=== PATIENT | male | born 1955 | race Caucasian/White ===

== ENCOUNTER 2020-05-02 14:14 | Emergency (ER) | payer BC ==
[~2020-05-02] VITALS: Ht 188 cm; Wt 124.0 kg
[2020-05-02] MEDS ORDERED: SYNTHROID150 MCG PO (15:26)
[2020-05-02] MEDS ORDERED: AMOXICILLIN500 MG PO (15:27)
[2020-05-02 18:56] LABS: HEMATOCRIT 44.2 % (39.0-50.0); HEMOGLOBIN 14.7 g/dl (14.0-18.0); IMMATURE GRANULOCYTES 0.2 % (0.0-5.0); MEAN CELL VOLUME 94.8 fL CALC (80.0-100.0); MEAN CORPUSCULAR HGB 31.5 pG CALC (26.0-32.0); MEAN CORPUSCULAR HGB CONC 33.3 g/dL CAL (32.0-36.0); NEUT# 2.83 thou/uL (1.82-7.42); RED BLOOD COUNT 4.66 mill/uL (4.70-6.10); RED CELL DISTRI WIDTH 12.1 % (11.5-15.5)
[2020-05-02 19:07] LABS: ALBUMIN 3.9 g/dL (3.2-5.0); ALKALINE PHOSPHATASE 57 u/l (38-126); ANION GAP 13 (6-22 (CALC)); BILIRUBIN, TOTAL 0.4 mg/dL (0.0-1.4); BUN 17 mg/dL (8-23); BUN/CREATININE RATIO 10 (12-20 (CALC)); CARBON DIOXIDE 20 mmol/l (22-30); CHLORIDE 104 mmol/l (95-108); CREATININE 1.7 mg/dL (0.7-1.3); GFR 41 ML/MIN (>=60 (CALC)); GFR FOR AFR.AMER. 50 ML/MIN (>=60 (CALC)); POTASSIUM 4.2 mmol/l (3.5-5.1); SGOT/AST 49 u/l (19-48); SODIUM 133 mmol/l (137-146); TOTAL PROTEIN 7.4 g/dL (6.3-8.2)
[2020-05-02 19:19] LABS: MYOGLOBIN 104 ng/mL (0 - 121)
[2020-05-02 21:57] VITALS: BP 104/67
== END 2020-05-02 22:05 | disposition home or self-care (01) | DRG 179 ==
LOC: ED 14:14
PROVIDERS: Emergency Medicine
DX: U07.1 COVID-19 (principal)
CPT/HCPCS: Q9967

== ENCOUNTER 2020-05-05 10:10 | Observation (INO) | payer BC ==
[~2020-05-05] VITALS: Ht 188 cm; Wt 124.0 kg
[~2020-05-05 10:10] MED LIST: AMOXICILLIN500 MG PO; SYNTHROID150 MCG PO
[2020-05-05 10:46] LABS: HEMOGLOBIN 15.1 g/dl (14.0-18.0); IMMATURE GRANULOCYTES 0.2 % (0.0-5.0); MEAN CELL VOLUME 92.1 fL CALC (80.0-100.0); MEAN CORPUSCULAR HGB 31.6 pG CALC (26.0-32.0); MEAN CORPUSCULAR HGB CONC 34.3 g/dL CAL (32.0-36.0); NEUT# 3.23 thou/uL (1.82-7.42); RED BLOOD COUNT 4.78 mill/uL (4.70-6.10)
--- NOTE | 2020-05-05 11:00 | NUR ---
PT HAS FLUIDS RUNNING THE PATIENT WAS HYPOTENSIVE ON ARRIVAL PT TOLERATING WELL WITHOUT DISTRESS. OXYGEN SATURATION ABOVE 95 ON ROOM AIR
[2020-05-05 11:03] LABS: ALBUMIN 3.8 g/dL (3.2-5.0); ALKALINE PHOSPHATASE 49 u/l (38-126); ANION GAP 13 (6-22 (CALC)); BILIRUBIN, TOTAL 0.4 mg/dL (0.0-1.4); BUN 17 mg/dL (8-23); BUN/CREATININE RATIO 9 (12-20 (CALC)); C-REACTIVE PROTEIN 2.2 mg/dL (0-0.9); CARBON DIOXIDE 20 mmol/l (22-30); CHLORIDE 104 mmol/l (95-108); CREATININE 1.8 mg/dL (0.7-1.3); GFR 38 ML/MIN (>=60 (CALC)); GFR FOR AFR.AMER. 46 ML/MIN (>=60 (CALC)); LIPASE 241 u/l (23-300); POTASSIUM 3.6 mmol/l (3.5-5.1); SGOT/AST 47 u/l (19-48); SODIUM 133 mmol/l (137-146); TOTAL PROTEIN 7.7 g/dL (6.3-8.2)
--- NOTE | 2020-05-05 11:40 | NUR ---
ANTIBIOTICS RUNNING PT WITHOUT DISTRESS
--- NOTE | 2020-05-05 15:42 | NUR ---
PT CURRENTLY RESTING WITHOUT DISTRESS, OXYGENATION ON ROOM AIR IS 96
[2020-05-05 17:25] VITALS: BP 98/61
--- NOTE | 2020-05-05 17:30 | NUR ---
Transfer Information Transferred To: [facility] Report Given to: CHIKIS MONTANA Transported by: [facility] Air Other Transported with: X Nurse X Transporter X Patent IV O2 X Food Service Substitute PT STABLE WITHOUT ACUTE DISTRESS PRIOR TO TRANSFER
--- NOTE | 2020-05-05 17:31 | NUR ---
PT ARRIVED TO [facility] ROOM 287 VIA PORTABLE ACCOMPAINED BY ER STAFF IN STABLE CONDITION. INTRODUCED SELF TO PT AND DISCUSSED POC. PT IS A/O X3. ASSESSMENT AND VITALS COMPLETED. RESPIRATIONS ARE EVEN AND UNLABORED ON ROOM AIR. NONPRODUCTIVE COUGH NOTED. HEART RHYTHM IS NORMAL WITH TELE IN PLACE. BOWEL SOUNDS ACTIVE IN ALL QUADRANTS, LAST RPORTED BM 05/05/2020. PT REPORTS DIARRHEA. #20G IN RAC RUNNING WITH IVF PER ODER, SITE APPEARS HEALTHY AND PATENT.SKIN IS WARM AND DRY WITH NO BREAK DOWN NOTED. TRACE EDEMA NOTED TO BILATERAL ANKLES. PT DENIES OF ANY PAIN. TRANSIT MIX OPERATOR INFORMED THAT PT PRESENTED TO ED DUE TO SOB FOR PAST COUPLE DAYS. PT ORIENTED TO ROOM AND CALL LIGHT SYSTEM. PT DENIES OF ANY NEEDS AT THIS TIME. ALL SAFTEY PRECAUTIONS ARE IN PLACE WIHT AIR/CONTACT PRECAUTIONS IN PLACE. WILL CONTINUE TO MONITOR
[2020-05-05 17:41] LABS: URINE BILIRUBIN - DIPSTICK NEGATIVE (NEGATIVE); URINE BLOOD DIPSTICK NEGATIVE (NEGATIVE); URINE COLOR YELLOW; URINE GLUCOSE - DIPSTICK NEGATIVE (NEGATIVE); URINE KETONE NEGATIVE (NEGATIVE); URINE LEUK ESTERASE NEGATIVE (NEGATIVE); URINE NITRITE - DIPSTICK NEGATIVE (Negative); URINE PROTEIN - DIPSTICK NEGATIVE (NEG-TRACE); URINE UROBILINOGEN - DIPSTICK 0.2 E.U./dL (0.2)
--- NOTE | 2020-05-05 19:00 | NUR ---
REPORT RECEIVED FROM NAKIA DIOP. PT RESTING IN BED, NO S/S OF DISTRESS AT THIS TIME. SAFETY PRECAUTIONS IN PLACE. WILL CONTINUE TO MONITOR.
[2020-05-05 20:00] VITALS: BP 98/65
--- NOTE | 2020-05-05 20:50 | NUR ---
PT RESTING IN BED WITH EYES CLOSED, PT EASILY AROUSED. RESPIRATIONS ARE EVEN AND UNLABORED. LUNGS SOUND CLEAR/DIMINISHED. PEDAL PULSES ARE STRONG. PT DENIES ANY PAIN OR DISCOMFORT AT THIS TIME. SAFETY PRECAUTIONS IN PLACE. WILL CONTINUE TO MONITOR.
[2020-05-06] VITALS (7 sets, daily range): BP systolic 93–115; BP diastolic 60–82
--- NOTE | 2020-05-06 00:12 | NUR ---
PT RESTING IN BED NO S/S OF DISTRESS AT THIS TIME.
--- NOTE | 2020-05-06 04:36 | NUR ---
PT RESTING IN BED, NO S/S OF DISTRESS AT THIS TIME. SAFETY PRECAUTIONS IN PLACE.
[2020-05-06 05:20] LABS: HEMATOCRIT 39.4 % (39.0-50.0); HEMOGLOBIN 13.5 g/dl (14.0-18.0); IMMATURE GRANULOCYTES 0.3 % (0.0-5.0); MEAN CELL VOLUME 92.3 fL CALC (80.0-100.0); MEAN CORPUSCULAR HGB 31.6 pG CALC (26.0-32.0); MEAN CORPUSCULAR HGB CONC 34.3 g/dL CAL (32.0-36.0); NEUT# 1.95 thou/uL (1.82-7.42); RED BLOOD COUNT 4.27 mill/uL (4.70-6.10)
[2020-05-06 05:42] LABS: ALKALINE PHOSPHATASE 37 u/l (38-126); ANION GAP 10 (6-22 (CALC)); BILIRUBIN, TOTAL 0.3 mg/dL (0.0-1.4); BUN 13 mg/dL (8-23); BUN/CREATININE RATIO 11 (12-20 (CALC)); CARBON DIOXIDE 20 mmol/l (22-30); CHLORIDE 108 mmol/l (95-108); CREATININE 1.2 mg/dL (0.7-1.3); GFR > 60 ML/MIN (>=60 (CALC)); GFR FOR AFR.AMER. > 60 ML/MIN (>=60 (CALC)); POTASSIUM 4.2 mmol/l (3.5-5.1); SGOT/AST 44 u/l (19-48); SODIUM 134 mmol/l (137-146)
[2020-05-06 05:50] LABS: ALBUMIN 2.9 g/dL (3.2-5.0); TOTAL PROTEIN 5.7 g/dL (6.3-8.2)
--- NOTE | 2020-05-06 07:01 | NUR ---
Patient is screened for PT intervention and no needs are identified at this time
--- NOTE | 2020-05-06 07:20 | NUR ---
COMPONENT TECHNICIAN NOTFIED BY CLAUDIO IN LAB THAT COVID SWAB WAS POSITIVE. NOTIFIED
--- NOTE | 2020-05-06 07:30 | NUR ---
RECIEVED REPORT FROM RUBÉN NANCE. PT RESTING IN LOW FOWLERS POSITION. INTRODUCED SELF TO PT AND DISCUSSED POC. PT IS A/OX3. PT DENIES ANY NEEDS OR DISCOMFORTS AT THIS TIME. ALL SAFETY PRECAUTIONS ARE IN PLACE WITH CALL LIGHT IN REACH.WILL CONTINUE TO MONITOR
--- NOTE | 2020-05-06 08:25 | NUR ---
ASSESSMENT AND VITALS COMPLETED AT THIS TIME. BP 93/60, HR 84, O2 94% ON ROOM AIR. RESPIRATIONS ARE EVEN AND UNLABORED ON ROOM AIR. NONRODUCTIVE COUGH NOTED. HEART RHYTHM NORMAL WITH TELE IN PLACE, SR 80 PER ER MONITORING. RADIAL AND PEDAL PULSES ARE STRONG. #20G INFUSING WITH IVF PER ORDER SITE APPEARS HEALTHY AND PATENT. PT DENIES OF ANY PAIN. PT APPEARS TO BE DIAPHORETIC, PT REPORTS ROOM IS WARM. TEMP RESULTING IN 98.5. ROOM TEMP DECREASED. PT DENIES ANY NEEDS AT THIS TIME. ALL SAFTEY AND ISOLATION PRECAUTIONS ARE IN PLACE WITH CALL LIGHT IN REACH. WILL CONTINUE TO MONITOR
--- NOTE | 2020-05-06 11:29 | NUR ---
REPOETED TEMP OF 99.3. TYLENOL TO BE ADMINISTERED
--- NOTE | 2020-05-06 12:22 | NUR ---
PT RESING IN SEMI FOWLERS POSITION WITH EYES CLOSED. REPSIRATIONS ARE EVEN AND UNLABORED ON ROOM AIR. NO SIGNS OF ANY PAIN OR DISCOMFORTS AT THIS TIME. COVERS REMOVED AND TYLENOL ADMINISTERED FOR TEMP. WILL FOLLOW UP. PT DENEIS ANY NEEDS AT THIS TIME. ALL SAFETY AND ISOALTION PRECAUTIONS ARE IN PLACE WITH CALL LIGHT IN REACH. WILL CONTINUE TO MONITOR
--- NOTE | 2020-05-06 13:03 | NUR ---
REASSESSSMENT OF TEMP 98.3. WILL CONTINUE TO MONITOR
--- NOTE | 2020-05-06 13:20 | NUR ---
REASSESSMENT OF TEMP REUSLTING IN 97.7. RESPIRATIONS ARE EVEN AND UNLABORED WITH NO SIGNS OF DISTRESS ON ROOM AIR. PT DENIES ANY PAIN. ALL SAFETY PRECAUTIONSA RE IN PLACE WITH CALL LIGHT IN REACH.WILL CONTINUE TO MONITOR.
--- NOTE | 2020-05-06 16:22 | NUR ---
PT RESITNG IN SEMI FOWLERS POSITION UPON ENTERING ROOM. RESPIRATIONS ARE EVEN AND UNLABORED ON ROOM AIR. TELE MONITORING IN PLACE. IVF INFUSING PER ORDER, SITE REMAINS HEALTHY AND PATENT. PT DENIES ANY PAIN OR NEEDS AT THIS TIME. ALL SAFETY PRECAUTIONS ARE IN PLACE WIHT CALL LIGHT IN REACH. WILL CONTINUE TO MONITOR
--- NOTE | 2020-05-06 20:22 | NUR ---
RECEIVED REPORT FROM SANTOS DIOP RESTING IN BED IN SEMI-KO, NO S/SX OF DISTRESS OBSERVED AT THIS TIME, PT DENIES ANY PAIN AT THIS TIME. NO NEEDS OR CONCERN EXPRESSED AT THIS TIME. WILL CONTINUE TO MONITOR.
--- NOTE | 2020-05-07 00:35 | NUR ---
PT RESTING IN BED, NO S/S OF DISTRESS AT THIS TIME. SAFETY PRECAUTIONS IN PLACE.
[2020-05-07 04:00] VITALS: BP 110/67
--- NOTE | 2020-05-07 04:18 | NUR ---
PT RESTING IN BED, NO S/S OF DISTRESS AT THIS TIME. SAFETY PRECAUTIONS IN PLACE.
[2020-05-07 07:10] VITALS: BP 109/69
--- NOTE | 2020-05-07 08:08 | NUR ---
PATIENT IN BED AT THIS TIME, DENIES ANY PAIN AND STATES HE DOES NOT FEEL SHORTNESS OF BREATH AT THIS TIME. CALL LIGHT IS WITHIN REACH. SIDERAILS UP X 2
[2020-05-07 10:50] VITALS: BP 97/63
--- NOTE | 2020-05-07 11:28 | NUR ---
PATIENT IN BED RESTING WITH EYES CLOSED, RESPIRATIONS EASY AND UNLABORED AT THIS TIME ALL SAFETY MEASURES IN PLACE CALL LIGHT WITHIN REACH. WILL CONTINUE TO MONITOR.
[2020-05-07] MEDS ORDERED: ZITHROMAX250 MG PO (11:35)
[2020-05-07] MEDS ORDERED: MEDDOSEPAK PO (11:35)
--- NOTE | 2020-05-07 15:53 | NUR ---
PATIENT D/C AT THIS TIME. PATIENT VERBALIZES UNDERSTANDING OF ALL D/C INSTRUCTIONS. PATIENT ADVISED IF CONDITION WORSENS TO SEEK MEDICAL ATTENTION TO [facility] .
--- NOTE | 2020-05-07 16:03 | NUR ---
Discharge instructions given. Patient verbalizes understanding of same. Discharged in stable condition via Wheelchair to Home with family. All belongings sent with pt.
== END 2020-05-07 16:04 | disposition home or self-care (01) | DRG 177 ==
LOC: ED 10:10 → ED-I 13:15 → ED 14:06 → MS2 14:07 → ED-I 14:07 → MS2 17:10
PROVIDERS: Family Medicine; Nurse Practitioner Family; ADMIT Internal Medicine; ATTEND Internal Medicine
DX: U07.1 COVID-19 (principal); J12.89 Other viral pneumonia; N17.9 Acute kidney failure, unspecified; I95.9 Hypotension, unspecified; I12.9 Hypertensive chronic kidney disease with stage 1 through stage 4 chronic kidney disease, or unspecified chronic kidney disease; N18.9 Chronic kidney disease, unspecified; E03.9 Hypothyroidism, unspecified; J45.909 Unspecified asthma, uncomplicated; E66.9 Obesity, unspecified; Z68.35 Body mass index [BMI] 35.0-35.9, adult
CPT/HCPCS: G0378; J1650; Q9967

== ENCOUNTER 2021-05-27 18:27 | Emergency (ER) | payer BC ==
[~2021-05-27] VITALS: Ht 188 cm; Wt 109.1 kg
[~2021-05-27 18:27] MED LIST changes: +MEDDOSEPAK PO; +ZITHROMAX250 MG PO
[2021-05-27] MEDS ORDERED: PROCTO-MED HC2.5 % (18:50)
[2021-05-27] MEDS ORDERED: MESALAMINE DR400 MG PO (18:51)
[2021-05-27 19:34] LABS: HEMATOCRIT 40.1 % (39.0-50.0); HEMOGLOBIN 13.7 g/dl (14.0-18.0); IMMATURE GRANULOCYTES 0.3 % (0.0-5.0); MEAN CELL VOLUME 94.8 fL CALC (80.0-100.0); MEAN CORPUSCULAR HGB 32.4 pG CALC (26.0-32.0); MEAN CORPUSCULAR HGB CONC 34.2 g/dL CAL (32.0-36.0); NEUT# 7.28 thou/uL (1.82-7.42); RED BLOOD COUNT 4.23 mill/uL (4.70-6.10); RED CELL DISTRI WIDTH 12.1 % (11.5-15.5)
[2021-05-27 19:45] LABS: ALBUMIN 3.4 g/dL (3.2-5.0); BUN 12 mg/dL (8-23); BUN/CREATININE RATIO 9 (12-20 (CALC)); CARBON DIOXIDE 25 mmol/l (22-30); CHLORIDE 95 mmol/l (95-108); CREATININE 1.3 mg/dL (0.7-1.3); GFR 56 ML/MIN (>=60 (CALC)); GFR FOR AFR.AMER. > 60 ML/MIN (>=60 (CALC)); LIPASE 52 u/l (23-300); POTASSIUM 4.1 mmol/l (3.5-5.1); SGOT/AST 21 u/l (19-48)
[2021-05-27 19:51] LABS: ALKALINE PHOSPHATASE 64 u/l (38-126); ANION GAP 14 (6-22 (CALC)); BILIRUBIN, TOTAL 0.7 mg/dL (0.0-1.4); SODIUM 130 mmol/l (137-146); TOTAL PROTEIN 7.3 g/dL (6.3-8.2)
[2021-05-27 22:05] LABS: URINE BILIRUBIN - DIPSTICK NEGATIVE (NEGATIVE); URINE BLOOD DIPSTICK NEGATIVE (NEGATIVE); URINE COLOR YELLOW; URINE GLUCOSE - DIPSTICK NEGATIVE (NEGATIVE); URINE KETONE NEGATIVE (NEGATIVE); URINE LEUK ESTERASE NEGATIVE (NEGATIVE); URINE PH 6.5 (4.5-8.0); URINE PROTEIN - DIPSTICK NEGATIVE (NEG-TRACE); URINE UROBILINOGEN - DIPSTICK 0.2 E.U./dL (0.2)
[2021-05-27 22:06] LABS: URINE NITRITE - DIPSTICK NEGATIVE (Negative)
[2021-05-27] MEDS ORDERED: PREDNISONE50 MG PO (22:23)
[2021-05-27] MEDS ORDERED: PROMETHAZINE HY25 M1 PO (22:23)
[2021-05-27 22:35] VITALS: BP 101/77
== END 2021-05-27 23:00 | disposition home or self-care (01) | DRG 387 ==
LOC: ED 18:27
PROVIDERS: Family Medicine
DX: K51.90 Ulcerative colitis, unspecified, without complications (principal)
CPT/HCPCS: Q9967

== ENCOUNTER 2021-06-01 18:07 | Inpatient (IN) | payer BC ==
[~2021-06-01] VITALS: Ht 188 cm; Wt 104.0 kg
[~2021-06-01 18:07] MED LIST changes: +MESALAMINE DR400 MG PO; +PREDNISONE50 MG PO; +PROCTO-MED HC2.5 %; +PROMETHAZINE HY25 M1 PO
[2021-06-01 19:00] VITALS: BP 117/79
--- NOTE | 2021-06-01 21:00 | NUR ---
PATIENT RESTING IN BED AT THIS TIME-AWAKE ALERT AND ORIENTEDX3. PATIENT STATES THAT HE IS FEELING VERY WEAK. STATES THAT HE HAD A COLONOSCOPY DONE A COUPLE OF WEEKS AGO IN [facility] AFTER HAVING CHRONIC DIARRHEA AND THEN BLOODY DIARRHEA. STATES THAT HE WAS TOLD FOLLOWING THE PROCEDURE THAT HE HAD ULCERATIVE COLITIS AND ABCESS. HAD TELE VISIT WITH DR. WORTHY TODAY AND WAS REFERRED TO THE HOSPITAL. LABS WERE DRAWN AND EKG WAS DONE AT BEDSIDE. PATIENT UP TO THE BSC FOR SMALL AMT OF LIQUID BROWN STOOL MIXED WITH URINE. UNABLE TO COLLECT SPEC AT THIS TIME. INSTRUCTED PATIENT THAT WE DO NEED STOOL AND URINE SPEC WHEN HE IS ABLE TO PROVIDE. SALINE LOCK TO LEFT ARM INTACT AND HEALTHY WITH GOOD BLOOD RETURN. IVF NS HUNG AND INFUSING AT 100CC/HR. PATIENT STATES THAT HE HASN'T BEEN ABLE TO EAT SOLID FOOD FOR A WHILE. TAKING ONLY PO FLUIDS AND THAT THEY ARE GOING RIGHT THOUGH HIM. PROVIDED WITH GATORADE AND PO FLUIDS. LUNGS ARE CLEAR. ABD IS SOFT WITH BS+. NO PERIPHERAL EDEMA NOTED. PULSES ARE PALPABLE. PATIENT ORIENTED TO ROOM AND SURROUNDINGS. INSTRUCTED ON USE OF NURSE CALL LIGHT SYSTEM AND TV REMOTE. SAFETY PRECAUTIONS REINFORCED. CALL LIGHT IN REACH. WILL CONT TO MONITOR.
[2021-06-01 21:13] LABS: HEMATOCRIT 43.1 % (39.0-50.0); HEMOGLOBIN 14.2 g/dl (14.0-18.0); IMMATURE GRANULOCYTES 0.3 % (0.0-5.0); MEAN CELL VOLUME 97.5 fL CALC (80.0-100.0); MEAN CORPUSCULAR HGB 32.1 pG CALC (26.0-32.0); MEAN CORPUSCULAR HGB CONC 32.9 g/dL CAL (32.0-36.0); NEUT# 5.5 thou/uL (1.82-7.42); RED BLOOD COUNT 4.42 mill/uL (4.70-6.10)
[2021-06-01 21:24] LABS: ALBUMIN 2.9 g/dL (3.2-5.0); ALKALINE PHOSPHATASE 65 u/l (38-126); ANION GAP 14 (6-22 (CALC)); BILIRUBIN, TOTAL 0.7 mg/dL (0.0-1.4); BUN 18 mg/dL (8-23); BUN/CREATININE RATIO 17 (12-20 (CALC)); CARBON DIOXIDE 25 mmol/l (22-30); CHLORIDE 96 mmol/l (95-108); CREATININE 1.1 mg/dL (0.7-1.3); GFR > 60 ML/MIN (>=60 (CALC)); GFR FOR AFR.AMER. > 60 ML/MIN (>=60 (CALC)); POTASSIUM 4.7 mmol/l (3.5-5.1); SGOT/AST 30 u/l (19-48); SODIUM 131 mmol/l (137-146); TOTAL PROTEIN 6.5 g/dL (6.3-8.2)
--- NOTE | 2021-06-01 23:00 | NUR ---
PATIENT RESTING IN BED-URINE SPEC COLLECTED AND SENT TO LAB. NO COMPLAINTS AT THIS TIME. IVF PATENT AND INFUSING VIA LEFT ARM. CALL LIGHT IN REACH. WILL CONT TO MONITOR.
[2021-06-01 23:43] LABS: URINE BILIRUBIN - DIPSTICK NEGATIVE (NEGATIVE); URINE BLOOD DIPSTICK NEGATIVE (NEGATIVE); URINE COLOR YELLOW; URINE GLUCOSE - DIPSTICK NEGATIVE (NEGATIVE); URINE KETONE NEGATIVE (NEGATIVE); URINE LEUK ESTERASE NEGATIVE (NEGATIVE); URINE PROTEIN - DIPSTICK NEGATIVE (NEG-TRACE); URINE SPECIFIC GRAVITY 1.015; URINE UROBILINOGEN - DIPSTICK 0.2 E.U./dL (0.2)
[2021-06-01 23:48] LABS: URINE NITRITE - DIPSTICK NEGATIVE (Negative)
[2021-06-02 00:41] VITALS: BP 108/71
--- NOTE | 2021-06-02 01:12 | NUR ---
PATIENT UP TO BSC-SMALL AMT OF LIQUID GREENISH BROWN STOOL-SPEC OBTAINED AND SENT TO THE LAB. BACK IN BED. MEDICATED WITH ATIVAN 0.5MG PF FOR SLEEP. IVF PATENT AND INFUSING VIA LEFT FOREARM SITE ORDERED. CALL LIGHT IN REACH. WILL CONT TO MONITOR.
[2021-06-02 04:00] VITALS: BP 105/66
--- NOTE | 2021-06-02 04:34 | NUR ---
PATIENT IP TO THE BSC AGAIN-SMALL AMT OF LOOSE BROWN STOOL. ASSISTED BACK TO THE BED, NASAL SWAB OBTAINED AND SENT TO LAB FOR MRSA HX. PATIENT PLACED ON CONTACT PER PROTOCOL. IVF NS PATENT AND INFUSING VIA LEFT FOREARM SITE AT 100CC/HR. PATIENT TAKING PO FLUIDS AND TOLERATING OK AT THIS TIME. SAFETY PRECAUTIONS REINFORCED. CALL LIGHT IN REACH. WILL CONT TO MONITOR.
[2021-06-02 05:13] LABS: HEMOGLOBIN 12.4 g/dl (14.0-18.0); MEAN CORPUSCULAR HGB 32.8 pG CALC (26.0-32.0); MEAN CORPUSCULAR HGB CONC 34.2 g/dL CAL (32.0-36.0); RED BLOOD COUNT 3.78 mill/uL (4.70-6.10)
[2021-06-02 05:24] LABS: HEMATOCRIT 36.3 % (39.0-50.0)
[2021-06-02 05:33] LABS: ANION GAP 14 (6-22 (CALC)); BUN 17 mg/dL (8-23); BUN/CREATININE RATIO 17 (12-20 (CALC)); CARBON DIOXIDE 22 mmol/l (22-30); CHLORIDE 98 mmol/l (95-108); GFR > 60 ML/MIN (>=60 (CALC)); GFR FOR AFR.AMER. > 60 ML/MIN (>=60 (CALC)); MAGNESIUM 2.2 mg/dL (1.6-2.3); POTASSIUM 3.5 mmol/l (3.5-5.1); SODIUM 130 mmol/l (137-146)
--- NOTE | 2021-06-02 05:43 | NUR ---
PATIENT UP TO THE BSC AGAIN FOR SMALL AMT OF LOOSE BROWN STOOL. BACK TO THE BED. IVF PATENT AND INFUSING VIA LEFT FOREARM SITE. MEDICATED WITH SYNTHROID ORDERED. CALL LIGHT IN REACH. WILL CONT TO MONITOR.
[2021-06-02 08:00] VITALS: BP 121/75
--- NOTE | 2021-06-02 09:17 | NUR ---
PT SEEN AWAKE, ALERT, ORIENTED X 3, APPEARS WEAK. PT USING BSC, NOTED TO HAVE FOUL SMELLING BMs WHEN HE USES COMMODE. PT ABLE TO SWALLOW HIS PILLS WITHOUT DIFFICULTY EVEN THOUGH HIS INTAKE HAS BEEN VERY LIMITED RECENTLY.
[2021-06-02] MEDS ORDERED: PREDNISONE20 MG PO (12:58)
--- NOTE | 2021-06-02 14:01 | NUR ---
PT SEEN BY DR ARCOS AND JUSTIN THIS MORNING, MEDS ADJUSTED DEEMED BENEFICIAL FOR PT. PT TO CT AND BACK, RESULTS SHARED WITH PT. PT CONTINUES WITH FREQUENT EPISODES OF DIARRHEA.
[2021-06-02 14:44] VITALS: BP 130/72
--- NOTE | 2021-06-02 18:05 | NUR ---
PT STATES NO NAUSEA AT THIS TIME, DECLINES ZOFRAN. AT BEDSIDE PROVIDES SUPPORT.
[2021-06-02 19:00] VITALS: BP 112/76
--- NOTE | 2021-06-02 20:00 | NUR ---
PATIENT RESTING IN BED AT THIS TIME-AWAKE ALERT AND ORIENTEDX3. PATIENT STATES THAT HE CONT TO HAVE FREUENT LOOSE BROWN STOOLS BUT MAY HAVE SLOWED DOWN SLIGHTLY. IVF NS PATENT AND INFUSING VIA LEFT FOREARM SITE. SITE REMAINS HEALTHY AT THIS TIME. APPETITE REMAINS POOR-TAKING ONLY SMALL AMT OF PO FLUIDS. SAFETY PRECAUTIONS REINFORCED. CALL LIGHT IN REACH. WILL CONT TO MONITOR.
--- NOTE | 2021-06-02 23:48 | NUR ---
PATIENT MIN ASSIST OOB TO THE BSC FOR BM. ZOSYN HUNG ORDERED. IVF NS PATENT AND INFUSING VIA LEFT FOREARM SITE. CALL LIGHT IN REACH. WILL CONT TO MONITOR,
[2021-06-03 04:00] VITALS: BP 125/71
--- NOTE | 2021-06-03 04:29 | NUR ---
PATIENT UP TO THE BSC AGAIN AND PASSING LOOSE BROWNISH RED STOOL. PATIENT NOW RESTING IN BED. IVF PATENT AND INFUSING VIA LEFT FOREARM SITE AT 100CC/HR. PATIENT DENIES ANY DIFFICULTY WITH URINATION. ACTUALLY STATES THAT HIS URINE OUTPUT IS INCREASED SINCE STARTED ON IVF. LOOSE BM'S ARE LESS THAN LAST NIGHT-ONLY 2-3 TIMES TONIGHT. SAFETY PRECAUTIONS REINFORCED. CALL LIGHT IN REACH. WILL CONT TO MONITOR.
[2021-06-03 05:27] LABS: HEMATOCRIT 34.4 % (39.0-50.0); HEMOGLOBIN 11.8 g/dl (14.0-18.0); MEAN CELL VOLUME 93.7 fL CALC (80.0-100.0); MEAN CORPUSCULAR HGB 32.2 pG CALC (26.0-32.0); MEAN CORPUSCULAR HGB CONC 34.3 g/dL CAL (32.0-36.0); RED BLOOD COUNT 3.67 mill/uL (4.70-6.10); RED CELL DISTRI WIDTH 11.9 % (11.5-15.5)
[2021-06-03 05:43] LABS: ANION GAP 10 (6-22 (CALC)); BUN 15 mg/dL (8-23); BUN/CREATININE RATIO 17 (12-20 (CALC)); CARBON DIOXIDE 22 mmol/l (22-30); CHLORIDE 102 mmol/l (95-108); CREATININE 0.9 mg/dL (0.7-1.3); GFR > 60 ML/MIN (>=60 (CALC)); GFR FOR AFR.AMER. > 60 ML/MIN (>=60 (CALC)); MAGNESIUM 2.6 mg/dL (1.6-2.3); POTASSIUM 3.8 mmol/l (3.5-5.1); SODIUM 130 mmol/l (137-146)
--- NOTE | 2021-06-03 08:00 | NUR ---
PT AWAKE UPOM ENTERIN ROOM. STATES NO PAIN AT THIS TIME. ASSESSMENT ALLOWED AT THIS TIME: LUNG SOUNDS ARE CLEAR UPPER/LOWER LOBES. BREATHING IS EVEN AND UNLABORED. BOWEL SOUNDS ARE ACTIVE X4, IV ON THE LFA 20G NS INFUSING PER EMAR. FALL PRECAUTIONS ARE IN PLACE. PT ANXIOUS ABOUT HAVING BLOODY STOOLS. ALREADY AWARE. CALL LIGHT WITHIN REACH.
[2021-06-03 08:06] VITALS: BP 109/74
--- NOTE | 2021-06-03 12:00 | NUR ---
PT EATING SOUP, STILL ON A FULL LIQUID DIET. STATES SCARED TO EAT DUE TO HAVING LOOSE STOOLS. STATES NO PAIN AT THIS TIME. CALL LIGHT WITHIN REACH
[2021-06-03 15:00] VITALS: BP 127/79
--- NOTE | 2021-06-03 16:00 | NUR ---
PT RESTING IN BED. REPORTS NO PAIN AT THIS TIME. ABLE TO GET STOOL SAMPLE, WAITING ON RESULTS. CALL LIGHT WITHIN REACH
--- NOTE | 2021-06-03 19:35 | NUR ---
PT IS AWAKE IN LOW FOWLERS IN THE BED WITH LIGHTS AND TV ON. PT REPORTS FEELING SOMEWHAT BETTER, BUT ALSO REPORTS THAT HE HAD ANOTHER STOOL OUTPUT IN BSC. THIS WAS EMPTIED ALONG WITH URINAL OF 400CC WITH 200CC OF URINE IN WITH STOOL BROWN W/RED BLOODY APPEARANCE. POC DISCUSSED AT THIS TIME AND PT ACKNOWLEDGES CALL SYSTEM. PT DENIES ANY OTHER NEEDS AT THIS TIME, BUT WAS ENCOURAGED TO CALL NEEDS ARISE.
[2021-06-03 20:00] VITALS: BP 122/73
--- NOTE | 2021-06-03 23:30 | NUR ---
PT MEDICATED ORDERS PROVIDE, ANTIBIOTIC THERAPY ADMINISTERED AT THIS TIME. PT REPORTS STOOL OUTPUT, VERY SMALL AMOUNT OF DARK BROWN W/RED TINGE STOOL OUTPUT @50CC WATERY. URINAL WAS ALSO EMPTIED OF 200CC OF CLEAR YELLOW URINE. DENIES ANY OTHER NEEDS AT THIS TIME. CALL LIGHT IN HAND. LIGHTS TURNED DOWN BY THE PT.
[2021-06-04 04:00] VITALS: BP 122/72; BP 142/75
[2021-06-04 05:11] LABS: HEMATOCRIT 34.5 % (39.0-50.0); HEMOGLOBIN 11.8 g/dl (14.0-18.0); MEAN CELL VOLUME 94.3 fL CALC (80.0-100.0); MEAN CORPUSCULAR HGB 32.2 pG CALC (26.0-32.0); MEAN CORPUSCULAR HGB CONC 34.2 g/dL CAL (32.0-36.0); RED BLOOD COUNT 3.66 mill/uL (4.70-6.10); RED CELL DISTRI WIDTH 12.1 % (11.5-15.5)
[2021-06-04 05:28] LABS: ANION GAP 8 (6-22 (CALC)); BUN 14 mg/dL (8-23); BUN/CREATININE RATIO 14 (12-20 (CALC)); CARBON DIOXIDE 24 mmol/l (22-30); CHLORIDE 104 mmol/l (95-108); GFR > 60 ML/MIN (>=60 (CALC)); GFR FOR AFR.AMER. > 60 ML/MIN (>=60 (CALC)); MAGNESIUM 2.6 mg/dL (1.6-2.3); POTASSIUM 3.8 mmol/l (3.5-5.1); SODIUM 132 mmol/l (137-146)
--- NOTE | 2021-06-04 05:29 | NUR ---
IVF REPLENISHED AND PT MEDIATED ORDERS PROVIDE. ICEWATER REFRESHED ALSO AT THIS TIME.
--- NOTE | 2021-06-04 08:00 | NUR ---
PT AWAKE AND ALERT UPON ENTERING ROOM. ASSESSMENT ALLOWED AT THIS TIME LUNG SOUNDS ARE CLEAR UPPER/LOWER LOBES ANTERIORLY AND POSTERIORLY. BOWEL SOUNDS HEARD X4. HEART SOUNDS ARE REGULAR. PT STATES STOOLS ARE BEING LESS FREQUENT. BLOODY STILL APPREARS IN STOOL. IV SITE LOCATED ON LFA 20G FLUSHED WITH NO RESISTANCE. NS INFUSING PER EMAR ORDER. FALL PRECUATIONS AE IN PLACE. CALL LIGHT AND PERSOANL ITEMS ARE WITHIN REACH.
--- NOTE | 2021-06-04 10:57 | NUR ---
S- Pt reported feeling better this am. Still not getting out of bed to chair due to abdominal pain and BP. 0- Pt seen at bedside. He was resting in bed. Supine BP 134/86. LE exercises performed activity 2 x10 reps including heelslide, hip abd/add, hip IR/ER, SAQ, ankle DF/PF. Sitting on edge of be BP 121/76, standing first time 99/94, second 96/73, in supine back to 126/76. HR in 70's with 02 sats 97 to 94%. Gait not performed due to BP. Standing performed with RW and gait belt/CGA. Supine to and from sit with bed rail and SBA A- mobility limited due to pain and BP. [facility] P- Will follow and progress as tolerated.
--- NOTE | 2021-06-04 12:00 | NUR ---
PT WATCHING TV WITH IN THE ROOM. ZOSYN ADMINISTERED PER EMAR ORDER. STATES NO PAIN AT THIS TIME. IV PATENT. CALL LIGHT WITHIN REACH.
[2021-06-04 15:30] VITALS: BP 140/86
--- NOTE | 2021-06-04 16:00 | NUR ---
PT AWAKE IN BED WITH IV WAS INFILTRATED SLIGHT INFLAMMATION AND REDNESS IN AREA. RUBÉN BAILEY ESTABLISHED NEW IV 22 OF THE LAC. REPORTS NO PAIN AT THIS TIME. CALL LIGHT WITHIN REACH.
[2021-06-04 19:00] VITALS: BP 120/85
--- NOTE | 2021-06-04 20:00 | NUR ---
PT RESTING IN BED NO SIGNS OF DISTRESS NOTED, RESP EVEN AND UNLABORED. PT ALERT AND ORIENTED X3, DISCUSSED POC, PT VOICES NO NEEDS OR COMPLAINTS AT THIS TIME, SKIN INTACT. ASSESSMENT COMPLETED, CALL LIGHT IN REACH,CONTINUE TO MONITOR.
--- NOTE | 2021-06-05 | NUR ---
PT MEDICATED WITH IV ZOSYN, PT VOICES NO NEEDS OR COMPLAINTS AT THIS TIME, CALL LIGHT IN REACH,CONTINUE TO MONITOR.
[2021-06-05 04:00] VITALS: BP 127/79
[2021-06-05 05:09] LABS: HEMATOCRIT 35.5 % (39.0-50.0); HEMOGLOBIN 11.8 g/dl (14.0-18.0); MEAN CELL VOLUME 97.3 fL CALC (80.0-100.0); MEAN CORPUSCULAR HGB 32.3 pG CALC (26.0-32.0); MEAN CORPUSCULAR HGB CONC 33.2 g/dL CAL (32.0-36.0); RED BLOOD COUNT 3.65 mill/uL (4.70-6.10); RED CELL DISTRI WIDTH 12.3 % (11.5-15.5)
[2021-06-05 05:28] LABS: ANION GAP 8 (6-22 (CALC)); BUN 15 mg/dL (8-23); BUN/CREATININE RATIO 16 (12-20 (CALC)); CARBON DIOXIDE 21 mmol/l (22-30); CHLORIDE 106 mmol/l (95-108); CREATININE 0.9 mg/dL (0.7-1.3); GFR > 60 ML/MIN (>=60 (CALC)); GFR FOR AFR.AMER. > 60 ML/MIN (>=60 (CALC)); MAGNESIUM 2.5 mg/dL (1.6-2.3); POTASSIUM 3.9 mmol/l (3.5-5.1); SODIUM 132 mmol/l (137-146)
--- NOTE | 2021-06-05 06:00 | NUR ---
PT IV ZOSYN INITIATED, PT DOES NOT C/O PAIN OR COMPLAINTS AT THIS TIME, CALL LIGHT IN REACH,CONTINUE TO MONITOR.
[2021-06-05 08:00] VITALS: BP 150/89
--- NOTE | 2021-06-05 08:00 | NUR ---
PT SITTING IN BED EATING BREAKFAST. A&O X3. NO DISTRESS NOTED. PT DENIES ANY PAIN AT THIS TIME. CURRENTLY ADVANCED TO 2GM SODIUM DIET; PT REPORTS TO BE TOLERATING FOOD SO FAR. CLEAR BREATH SOUNDS UPON AUSCULTATION. ACTIVE BOWEL SOUNDS X4 QUADRANTS, PT REPORTS SLIGHT IMPROVEMENT WITH HIS DIARRHEA; STATES "EPISODES ARE LESS". STRONG PEDAL PULSES BILAT. #22G LH HEALTHY AND PATENT WITH IVF INFUSING PER MAR ORDERS. ASSESSMENT COMPLETED. DISCUSSED POC. CALL LIGHT WITHIN REACH.
--- NOTE | 2021-06-05 09:13 | NUR ---
DR ARCOS AND [employer] APRN AT BEDSIDE DISCUSSING POC
--- NOTE | 2021-06-05 12:53 | NUR ---
PT SET UP TO SHOWER; AT BEDSIDE. NO OTHER NEEDS AT THIS TIME. IV WRAPPED. AND PT INSTRUCTED TO CALL IF ASSISTANCE WAS NEEDED; BOTH VERBALIZED UNDERSTANDING.
[2021-06-05 14:36] VITALS: BP 143/68
[2021-06-05 19:20] VITALS: BP 134/80
--- NOTE | 2021-06-05 20:00 | NUR ---
PT RESTING IN BED, NO SIGNS OF DISTRESS NOTED, RESP EVEN AND UNLABORED. PT ALERT AND ORIENTED X3, NO EDEMA, DISCUSSED POC. PT DENIES ANY PAIN OR DISCOMFORT AT THIS TIME. SKIN INTACT, MEDICATED PER MAR, ASSESSMENT COMPLETED, CALL LIGHT IN REACH,CONTINUE TO MONITOR.
--- NOTE | 2021-06-05 21:50 | NUR ---
PT RESTING IN BED, MEDICATED PER AUG, BSC EMPTIED, NO STOOL NOTED. CALL LIGHT IN REACH,CONTINUE TO MONITOR.
--- NOTE | 2021-06-05 23:52 | NUR ---
PT HAD AN EPISODE OF DIARRHEA, ASSISTED PT WITH LINEN CHANGE, NO SIGNS OF DISTRESS NOTED, RESP EVEN AND UNLABORED. IV ANTIBIOTIC INITATED. CALL LIGHT IN REACH,CONTINUE TO MONITOR.
[2021-06-06 03:50] VITALS: BP 124/77
--- NOTE | 2021-06-06 04:00 | NUR ---
PT BSC EMPTIED, STILL HAVING DIARRHEA, NO SIGNS OF DISTRESS NOTED, RESP EVEN AND UNLABORED. PT VOICES NO NEEDS OR COMPLAINTS AT THIS TIME, CALL LIGHT IN REACH,CONTINUE TO MONITOR.
[2021-06-06 05:26] LABS: HEMATOCRIT 33.9 % (39.0-50.0); HEMOGLOBIN 11.3 g/dl (14.0-18.0); MEAN CELL VOLUME 97.7 fL CALC (80.0-100.0); MEAN CORPUSCULAR HGB 32.6 pG CALC (26.0-32.0); MEAN CORPUSCULAR HGB CONC 33.3 g/dL CAL (32.0-36.0); RED BLOOD COUNT 3.47 mill/uL (4.70-6.10); RED CELL DISTRI WIDTH 12.2 % (11.5-15.5)
[2021-06-06 05:41] LABS: ANION GAP 7 (6-22 (CALC)); BUN 16 mg/dL (8-23); BUN/CREATININE RATIO 17 (12-20 (CALC)); CARBON DIOXIDE 20 mmol/l (22-30); CHLORIDE 107 mmol/l (95-108); CREATININE 0.9 mg/dL (0.7-1.3); GFR > 60 ML/MIN (>=60 (CALC)); GFR FOR AFR.AMER. > 60 ML/MIN (>=60 (CALC)); POTASSIUM 3.8 mmol/l (3.5-5.1); SODIUM 131 mmol/l (137-146)
[2021-06-06 08:00] VITALS: BP 127/74
--- NOTE | 2021-06-06 08:00 | NUR ---
PT SITTING UP ON THE SIDE OF THE BED UPON ENTERING ROOM. ANXIOUS TOWARDS BM. PT REPORTS NO PAIN AT THIS TIME. STATES HAVING 15X BM FROM 8AM 06/05/21 TO 8AM 06/06/21 STATES BM HAS HAD LESS BLOOD. IV LOCATED ON THE LH 22G INFUSING NS @100 ML/HR WITH NO COMPLICATIONS. ASSESSMENT ALLOWED AT THIS TIME: LUNG SOUNDS CLEAR PPER/LOWER LOBES UPON AUSCULATION. HEART SOUNDS REGULAR. BOWEL SOUNDS HEARD X4. FALL PRECUAUTIONS IN PLACE. CALL LIGHT AND PERSONAL ITEMS ARE WITHINREACH.
--- NOTE | 2021-06-06 10:25 | NUR ---
PT WILL BE TRANSFERED TO [facility] FOR GI SERVICES/ [facility] UP PER DR. ARCOS
--- NOTE | 2021-06-06 10:26 | NUR ---
CALLED [facility] AT [phone] SPOKE TO DAKSHA ASK THE REFFERING DOCTOR AND DIAGNOSIS. ALSO ASKED TO FAX A FACESHEET AND COVID RESULT TO [phone].
--- NOTE | 2021-06-06 11:00 | NUR ---
CALLED BACK TO [facility] SPOKE TO ITZ. HE LET ME KNOW HE RECEIVED THE FAX STATED HE WILL CALL BACK WITH ACCEPTING PHYSICIAN AND ROOM NUMBER.
--- NOTE | 2021-06-06 12:34 | NUR ---
CALLED [facility] AT SPOKE TO MASSIEL GAVE ROOM NUMBER OF PT FOR HERE AND FOR OCD[employer]. STATED TICKET SALES AGENT WILL BE AROUND 315-330PM TODAY.
[2021-06-06 15:00] VITALS: BP 114/74
--- NOTE | 2021-06-06 16:00 | NUR ---
PT AWAITING TRANSFER TO [facility]. TRANSPORTATION HAS BEEN DELAYED. NO NEEDS AT THIS TIME. CALL LIGHT WITHIN REACH
[2021-06-06 19:00] VITALS: BP 112/62
--- NOTE | 2021-06-06 19:10 | NUR ---
REPORT RECEIVED FROM Armand JAIMES PT TO BE TRANSPORTED TO [facility] THIS EVENING. TRANSPORTATION CONFIRMED.
--- NOTE | 2021-06-06 19:35 | NUR ---
TRANSPORT TEAM ARRIVED ON FLOOR 1919, ASSITED PATIENT, PT LEFT FLOOR AT 1924 ACCOMPANIED BY TRANSPOST TEAM OF TWO VIA STRETCHER. PT IN STABLE CONDITION.
== END 2021-06-06 19:35 | disposition short-term general hospital (02) | DRG 386 ==
LOC: MS2 18:07
PROVIDERS: Nurse Practitioner; ADMIT Hospitalist; ATTEND Hospitalist
DX: K51.511 Left sided colitis with rectal bleeding (principal); E87.1 Hypo-osmolality and hyponatremia; I12.9 Hypertensive chronic kidney disease with stage 1 through stage 4 chronic kidney disease, or unspecified chronic kidney disease; N18.9 Chronic kidney disease, unspecified; E03.9 Hypothyroidism, unspecified; J45.909 Unspecified asthma, uncomplicated; Z20.822 Contact with and (suspected) exposure to COVID-19
CPT/HCPCS: Q9967